=== PATIENT | female | born 1960 | race Caucasian/White ===

== ENCOUNTER → 2021-10-22 | Outpatient (CLI) | payer OTHER, SELFPAY | END | disposition home or self-care (01) | LOC: LABSPEC 13:26 | PROVIDERS: Visit Provider Obstetrics & Gynecology | DX: R30.0 Dysuria (principal) | CPT/HCPCS: 87086; 87088 ==

== ENCOUNTER 2021-11-18 14:13 | Observation (INO) | payer SELFPAY, OTHER ==
--- NOTE | 2021-11-12 14:40 | EKG12_ITS ---
Test Reason : PRE OP Blood Pressure : / mmHG Vent. Rate : 098 BPM Atrial Rate : 098 BPM P-R Int : 156 ms QRS Dur : 068 ms QT Int : 348 ms P-R-T Axes : 070 -12 047 degrees QTc Int : 444 ms Normal sinus rhythm Low voltage QRS Septal infarct , age undetermined Abnormal ECG Confirmed by DEIRDRE KENNEDY, KATHY ([id number]), graphic editor PARISH PAUL ([id number]) on 11/13/2021 8:48:55 AM Referred By: ROSIBEL Confirmed By:KATHY GILMORE MD
[2021-11-12 16:24] LABS: Hemoglobin A1c 7.3 % (3.8-5.6)
[2021-11-12 16:35] LABS: Anion Gap 8 (5-15); BUN 25 mg/dL (7-18); BUN/Creat Ratio 28.3 RATIO (10-20); Calcium,Total 9.7 mg/dL (8.5-10.1); Chloride 99 mmol/L (98-107); Creatinine, Serum 0.88 mg/dL (0.55-1.02); EST Glomerular Filtration Rate 69 mL/min (>60); Est Glom Filt Rate - Afr Amer 83 mL/min (>60); Glucose 184 mg/dL (74-106); Magnesium 2.3 mg/dL (1.6-2.6); Sodium Level 137 mmol/L (136-145); Thyroid Stim Hormone (TSH) 2.49 uIU/mL (0.358-3.74)
--- NOTE | 2021-11-17 21:10 | HP.PCM_ITS ---
History and Physical Date of Admission: 11/18/21 Surgical History and Physical Nadine Cornejo, a 61 year old female 10 0 1 0 10, presents for Vaginal Hysterectomy and AP Repair on November 18, 2021. -- Large Cystocele; Uterine fibroid -- Nadine states she does have some discomfort and urinary urgency. Gellhorn fell out the evening it was inserted. Has a large protrusion that is very red and uncomfortabe. She has dysuria and pain in perineum at int most of the time. Nadine claims it started suddenly and has been present 2 years. It occurs all the time. It is located in the vagina. Nadine characterizes it to be non-radiating. Nadine characterizes the quality pressure. Additional comments are: prior C- section and fibroids about 13 years ago before menopause. MEDICATIONS HISTORY: Current medications prescribed by our practice are: 1. clobetasol 0.05 % topical cream, Apply thinly to affected area three times a day for 2 weeks then daily as needed 2. Detrol LA 2 mg capsule,extended release, One pill by mouth once a day 3. Diflucan 150 mg tablet, 1 pill by mouth every 4 days Patient is also takin. Metformin 1000mg, bid 2. Glipizide 10mg, daily 3. Farxiga 10 mg tablet, One pill by mouth once a day in am 4. levothyroxine 75 mcg tablet, One pill by mouth once a day ALLERGIES: NKDA Infections - Chicken pox Illnesses - Diabetes, Hypothyroidism, Accidents - None Hospitalizations - see surgery Review of Systems: GENERAL - Denies fever, or chills SKIN - Denies skin changes EYES - Denies visual changes EARS - Denies difficulty hearing NOSE - Denies nasal congestion or bleeding MOUTH - Denies sore throat or difficulty swallowing NECK - Denies pain or swelling RESPIRATORY - Denies shortness of breath or wheezing CARDIOVASCULAR - Denies palpitations or chest pain GASTROINTESTINAL - Denies nausea, vomiting, diarrhea, constipation GENITOURINARY - Denies dysuria, frequency of urination, incontinence of urine MUSCULOSKELETAL - Denies joint or muscle pain NEUROLOGICAL - Denies localized numbness or weakness PSYCHIATRIC - Denies depression or anxiety ENDOCRINE - Denies heat or cold intolerance, weight loss or gain HEMATO-IMMUNOLOGIC - Denies excesive bleeding with cuts SOCIAL HISTORY: Alcohol Use - None Smoking - Never Diet - Diabetic Diet Lifestyle - moderate stress lifestyle and Exercise - active Seat Belt Use - most of the time Employer - [employer] Illicit Drug Use - None Sexual Activity - Spouse-Sig Other Name - Donald Spouse-Sig Other Occupation - Dog [employer] Children Name(s) - 10 children Control - postmenopausal FAMILY HISTORY: Mother: Heart Disease. Father: Prostrate and Bone Cancer. MENSTRUAL HISTORY: LMP Known?- PostmenopausalAmount/Duration - 5 to 7 days, Regularity - Regular, LMP - 03/19/09, Age Onset Menarche - 12 PAST PREGNANCIES: Total Pregnancies - 11; Full Term Pregnancies - 10; Premature - 0; Abortions, Induced - 0; Abortions, Spontaneous - 1; Ectopics - 0; Multiple Births - 0; Living Children - 10 SURGICAL HISTORY: 1. 11/06/1997 cholecystectomy ; [facility] 2. 02/06/1999 Hernia Repair ; [facility] 3. 11/27/1983 4. 05/21/2001 5. 03/17/2007 [place] ; [place] [id number] (R) Knee Replacement 2017 Bilateral Vein Stripping PHYSICAL EXAM BP- 110/72 Sitting, Right arm, regular cuff Weight- 184.0 lbs Height- 63.00 inch BMI:32.6 CONSTITUTIONAL - NAD, well nourished, and well developed NEUROLOGICAL - Cranial nerves II-XII grossly intact PSYCHIATRIC - A and O to time, place, person, mood and affect External Genitial Vagina - non-tender without lesions and irritation posterior forchette Urethra/Urethral Meatus - non-tender Bladder - non-tender Vagina - loss of rugae, cystocele 5 cm outside introitus with bearing down; rectocele to introitus and very open perineum Cervix - without cervical motion tenderness and has normal size and features without evident lesions Uterus - nulliparous size 5 cm & wt 70 g Adnexa - clear without masses or tenderness ASSESSMENT/PLAN: 1. Cystocele Midline and Rectocele Very symptomatic and large. Discussed options for treatment including pessary use versus Vag Hyst with AP Repair. Pessary use failed. Start intravaginal estrogen, clobetasol cream for irritation. Wants to proceed with Vag Hyst, AP Repair. Discussed RBAs and all questions answered.
[2021-11-18] VITALS (11 sets, daily range): BP systolic 124–142; BP diastolic 72–91; PULSE 83–111; RESP 11–18; TEMP 36.6–37.2; O2SAT 94–99; BMI 31.9
[2021-11-18 10:44] LABS: Absolute Neutrophil Count 3.3 X10^3/uL (2.0-7.7); Basophil# 0.03 X10^3/uL; Basophil% 0.5 % (0-1); Eosinophil# 0.14 X10^3/uL; Eosinophils% 2.4 % (0-5); Hematocrit 38.5 % (37-47); Hemoglobin 12.8 g/dL (12.0-15.0); Lymphocyte % 32.5 % (19-41); Mean Corp Hgb Conc 33.2 g/dL (32-36); Mean Corpuscular Hgb 28.6 pg (27.0-32.0); Mean Corpuscular Volume 85.9 fL (81-99); Mean Platelet Vol. 9.8 fl (6.2-12.0); Monocyte# 0.51 X10^3/uL; Monocyte% 8.7 % (0-10); NRBC Flagged by Analyzer 0 % (0-5); Neutrophil # 3.26 X10^3/uL (2.7-7.7); Neutrophil % 55.7 % (47-70); Platelet Count 201 K/mm3 (150-450); RBC Distribution Width CV 13.3 % (11.6-14.6); RBC Distribution Width SD 41.5 fl (35.1-43.9); Red Blood Count 4.48 M/mm3 (4.2-5.4); White Blood Count 5.9 K/mm3 (4.4-11.0)
[2021-11-18] MEDS: Lactated Ringers 1,000 ML 40 ML IV ×2 (10:45→13:15)
[2021-11-18] MEDS: Gabapentin 600 MG Tablet PO (10:46)
[2021-11-18] MEDS: Acetaminophen 500 MG Tablet 1000 MG PO (10:46)
[2021-11-18 10:54] LABS: International Normalized Ratio 0.9; Prothrombin Time (Protime)PT. 12.1 SECONDS (11.7-14.9)
[2021-11-18 10:55] LABS: Partial Thromboplast Time 25.7 Seconds (24.1-36.2)
[2021-11-18 10:58] LABS: ALB/GLOB Ratio 1.2 RATIO (0.9-2.4); AST(SGOT) 15 U/L (15-37); Alanine Aminotransfer ALT/SGPT 26 U/L (13-56); Albumin, Serum 3.7 g/dL (3.2-5.0); Alkaline Phosphatase 54 U/L (45-117); Anion Gap 6 (5-15); BUN 26 mg/dL (7-18); BUN/Creat Ratio 32.8 RATIO (10-20); Calcium,Total 9.2 mg/dL (8.5-10.1); Chloride 108 mmol/L (98-107); Creatinine, Serum 0.79 mg/dL (0.55-1.02); EST Glomerular Filtration Rate 78 mL/min (>60); Est Glom Filt Rate - Afr Amer 94 mL/min (>60); Estimated Creatinine Clearance 61.08 ml/min; Globulin 3.1 g/dL (2.2-4.2); Glucose 157 mg/dL (74-106); Protein, Total 6.8 g/dL (6.4-8.2); Sodium Level 140 mmol/L (136-145)
--- NOTE | 2021-11-18 11:32 | OP.PCM_ITS ---
Report of Operation Date of Procedure: 11/18/21 Pre-Operative Diagnosis: Symptomatic Incomplete Uterovaginal Prolapse, Cystocel e, Rectocele Post-Operative Diagnosis: Symptomatic Incomplete Uterovaginal Prolapse, Cystocele, Rectocele Surgery/Procedure Performed:: Vaginal Hysterectomy and Anterior Posterior Repair Description of Surgical Findings:: 10 cm size uterus with long and inflamed cervix that prolapsed 4 cm outside the introitus. Cystocele which prolapsed approximately 5 cm outside the introitus. Moderate rectocele noted after cystocele repair. Surgeon: Luis Enrique Ryder yoghurt maker: Liu Simmons Type of Anesthesia: General (LMA) Anesthesiologist: Mitch Clemente Specimen's removed: Uterus, vaginal mucosa Drains: Londono to straight drain Estimated Blood Loss (mL): 200 cc Fluids Replaced: crystalloid Description of Procedure: Surgeon: Luis Enrique Ryder MD, FACOG Indications: This is a 61-year-old patient who is been having problems with painful and symptomatic prolapse and a large cystocele. Conservative measures including Gelhorn pessary attempt have not been helpful. Given this the patient desires that we proceed the above procedure. She has been counseled regarding the risk and indications of this procedure including the possibility of bleeding, infection, and injury to surrounding structures such as bowel bladder. All questions were answered. Procedure: Patient was taken to the operating room where after induction of general anesthesia she was placed in the dorsal lithotomy position and prepped and draped in the usual sterile fashion. A Londono catheter was placed. Anterior cervix was grasped with a tenaculum and anterior cervix circumscribed with cautery on a setting of 35 W coagulation. Anterior vaginal mucosa was undermined and anterior peritoneum was entered after 2 bites along each side of the cervix. The posterior aspect of the cervix was circumscribed with a knife and posterior peritoneum more easily entered. Progressive bites were taken on either side of the uterine cervix and each pedicle ligated with 0 Vicryl suture. Superior pedicles were ligated ?2 with 0 Vicryl suture and sidewall pedicles were examined and oversewn where necessary with [id number] 0 Vicryl suture to achieve hemostasis. Posterior vaginal cuff was oversewn with running locked 0 Vicryl suture. Hemostasis was noted and peritoneum was closed in a purse string fashion incorporating superior pedicles into the stitch. Vaginal cuff was then closed front to back with interrupted [id number] 0 Vicryl suture. Hemostasis was noted. Attention was turned toward the anterior repair portion of the procedure. Anterior vaginal mucosa was undermined and divided and then imbricated toward the midline with interrupted 0 Vicryl sutures. Vaginal mucosa was trimmed and then closed with interrupted 2-0 chromic suture. Hemostasis was noted. Attention was turned toward the posterior repair portion of the procedure. Remnants of the hymenal ring were grasped with Allises and a V-shaped incision was made in the perineum. Rectovaginal mucosa was then undermined divided and then imbricated toward the midline with interrupted 0 Vicryl suture. Vaginal m ucosa was trimmed and then closed with running locked 2-0 chromic suture. Remnants of the bulbocavernosus muscles were identified and brought toward the midline with a single [id number] 0 Vicryl suture and perineum was closed in the usual fashion with running and subcuticular, and [id number] 2-0 chromic suture. Hemostasis was noted. Londono catheter was again opened and clear yellow urine was again noted. Vagina was packed with iodoform tape. Patient tolerated the procedure well was taken to recovery room in satisfactory condition; sponge instrument and needle counts were all reportedly correct. Estimated blood loss for the case was 200 cc. Ancef 2 g IV was given prior to beginning the operative procedure. There were no apparent complications of the surgery. Specimen to pathology was uterus and vaginal mucosa. Grafts/Implants Used: None Complications None Admit VTE Documentation VTE Present on Admission: Yes VTE Mechan Device Prophylaxis: SCD's VTE Pharm Prophylaxis ordered?: Yes
[2021-11-18] MEDS: Cefazolin 2 GM in 0.9% Normal Saline 100 ML IV (11:41)
--- NOTE | 2021-11-18 12:00 | HYST_PTH ---
PATIENT: DEANA TANG LOC: [facility] U#:[id number] AGE/SX: 61/F ROOM: MI312 RE11/18/[address]: Dr. Luis Enrique Ryder MD : 1960 BED: 1 DIS: 11/19/2021 SPEC #: [id number] RECD: 11/18/21 15:50 STATUS: CORINNE VAUGHAN #: [id number] ADRIEN: 11/18/21 12:[address]: Luis Enrique Ryder DEPT: SURGICAL PATHOLOGY RECD BY: Juani Gonzalez ENTERED: 11/19/21 12:08 SP TYPE: HYSTERECT OTHR DR: Dr. Luis Enrique Agee MD Tissues: Uterus, NOS Procedures: Surgery Specimen Level II Surgery Specimen Level V HEADER OPERATION: Vaginal hysterectomy, anterior and posterior repair PRE-OP DIAGNOSIS: Symptomatic incomplete uterovaginal prolapse, cystocele, rectocele TISSUE SUBMITTED: Uterus, cervix, vaginal mucosa MICROSCOPIC DIAGNOSIS Uterus, hysterectomy: Cervix ? focal ulceration with associated acute and chronic inflammation and early granulation, nabothian cysts. Endometrium ? simple cystic hyperplasia without atypia. Myometrium ? leiomyoma and adenomyosis. Vaginal mucosa, anterior and posterior repair: Hyperkeratosis and minimal chronic inflammation. AM:mo 11/20/2021 MICROSCOPIC DESCRIPTION Slides are reviewed. GROSS DESCRIPTION Received in fixative is one container labeled with the patient's name and designated uterus, cervix and vaginal mucosa. The specimen consists of a hysterectomy specimen consisting of uterus with cervix and detached mucosal tissue. The uterus with cervix weighs 101 gm and measures 13 x 6 x 4 cm. The serosal surface is focally ragged. The ectocervical mucosa is unremarkable. The external os is slit-like in contour. The endocervical canal is elongated and measures up to 5.5 cm in length. The endocervical mucosa is stearns, glistening and unremarkable. The triangular endometrial cavity measures 4 cm in length and up to 3 cm in width. The endometrium is stearns, glistening without any mass lesion and measures 0.1 cm in thickness. Sections of the uterine wall reveal one intramural nodular mass at the fundus measuring 1.5 cm in diameter. Sections of this mass reveals stearns whorled cut surfaces without areas of hemorrhage, necrosis or cystic degeneration. The uninvolved uterine wall measures up to 2.2 cm in thickness. Also present in the container are two detached pieces of stearns mucosal tissue measuring in aggregate 7 x 4.5 x 0.3 cm. No mucosal lesion is identified. Multiple instrumentation [place] are noted. Solution Design Engineer sections are submitted in eight cassettes as follows: 1 - anterior cervix, 2 - posterior cervix, 3 & 4 - anterior uterine wall, 5 & 6 - posterior uterine wall, 7 ? nodular mass, 8 ? mucosal tissue. / CITLALLI:mo 11/19/2021 TC:1 CPT: 48372, 88428
[2021-11-18 13:31] LABS: Bedside Glucose 165 mg/dL (74-106)
[2021-11-18] MEDS: Ondansetron 4 MG/2 ML Vial IV (14:15)
[2021-11-18] MEDS: Insulin Lispro 100 UNIT/ML INSULN.PEN SC (14:45)
[2021-11-18 14:51] LABS: Bedside Glucose 239 mg/dL (74-106)
[2021-11-18] MEDS: oxyCODONE 5 MG Tablet PO (17:56)
[2021-11-18] MEDS: glipiZIDE XL 5 MG Tablet 20 MG PO (17:56)
[2021-11-18] MEDS: Enoxaparin 40 MG/0.4 ML Syringe SC (20:27)
[2021-11-18] MEDS: Cefazolin 1 GM/50 ML BAG IV (20:27)
[2021-11-18] MEDS: Ketorolac 15 MG/ML Vial IV (21:56)
[2021-11-18] MEDS: 0.9% Saline Lock 10 ML Syringe IV (21:56)
[2021-11-19 02:00] VITALS: BP 105/61; PULSE 100; RESP 18; TEMP 37.1; O2SAT 96
[2021-11-19] MEDS: Cefazolin 1 GM/50 ML BAG IV (02:36)
[2021-11-19] MEDS: 0.9% Saline Lock 10 ML Syringe IV (04:13)
[2021-11-19] MEDS: Ketorolac 15 MG/ML Vial IV ×3 (04:13→15:46)
[2021-11-19 05:54] LABS: Hematocrit 32.3 % (37-47); Hemoglobin 10.7 g/dL (12.0-15.0); Mean Corp Hgb Conc 33.1 g/dL (32-36); Mean Corpuscular Hgb 28.6 pg (27.0-32.0); Mean Corpuscular Volume 86.4 fL (81-99); Mean Platelet Vol. 9.3 fl (6.2-12.0); Platelet Count 176 K/mm3 (150-450); RBC Distribution Width CV 13.6 % (11.6-14.6); RBC Distribution Width SD 42.7 fl (35.1-43.9); Red Blood Count 3.74 M/mm3 (4.2-5.4); White Blood Count 9.1 K/mm3 (4.4-11.0)
[2021-11-19] MEDS: oxyCODONE 5 MG Tablet PO ×2 (06:18→12:24)
[2021-11-19] MEDS: Levothyroxine 75 MCG Tablet PO (06:18)
[2021-11-19 06:26] LABS: Creatinine, Serum 0.73 mg/dL (0.55-1.02); EST Glomerular Filtration Rate 85 mL/min (>60); Est Glom Filt Rate - Afr Amer 103 mL/min (>60)
[2021-11-19 06:58] VITALS: O2SAT 96
[2021-11-19 07:52] VITALS: BP 97/58; PULSE 97; RESP 18; TEMP 37; O2SAT 98
[2021-11-19] MEDS: metFORMIN HCl 1,000 MG Tablet 1000 MG PO ×2 (08:00→17:56)
--- NOTE | 2021-11-19 08:54 | PN.OBGYN_ITS ---
Subjective Subjective Patient without complaints. Tolerating diet well. Minimal vaginal bleeding reported. Londono catheter remains in. Vaginal pack removed with minimal vaginal bleeding noted. Objective Data Objective Data Good urine output. Hemoglobin and creatinine okay. Vital Signs: Vital Signs Temp Pulse Resp BP Pulse Ox 98.6 F 97 18 97/58 L 98 11/19/21 07:52 11/19/21 07:52 11/19/21 07:52 11/19/21 07:52 11/19/21 07:52 Oxygen Flow Rate (L/min) 4 Oxygen Delivery Method Room Air Weight: 180 lb 8.937 oz Body Mass Index (BMI) 31.9 Intake & Output: Intake and Output for Last 24 Hours 11/17/21 11/18/21 11/19/21 23:59 23:59 23:59 Intake Total 1752 / 1812 110 / 110 Output Total 450 / 650 550 / 550 Balance 1302 / 1162 -440 / -440 Lab / Micro Data Result Diagrams: 11/19/21 05:15 11/19/21 05:15 Labs: Laboratory Results - last 24 hr 11/18/21 10:23: POC Glucose 165 H 11/18/21 10:30: WBC 5.9, RBC 4.48, Hgb 12.8, Hct 38.5, MCV 85.9, MCH 28.6, MCHC 33.2, RDW Std Deviation 41.5, RDW Coeff of Kurt 13.3, Plt Count 201, MPV 9.8, Immature Gran % (Auto) 0.200, Neut % (Auto) 55.7, Lymph % (Auto) 32.5, [place] % (Auto) 8.7, Eos % (Auto) 2.4, Baso % (Auto) 0.5, Absolute Neuts (auto) 3.3, Absolute Lymphs (auto) 1.90, Nucleated RBC % 0 11/18/21 10:30: PT 12.1, INR 0.9, APTT 25.7 11/18/21 10:30: Sodium 140, Potassium 4.0, Chloride 108 H, Carbon Dioxide 26.0, Anion Gap 6, BUN 26 H, Creatinine 0.79, Estim Creat Clear Calc 61.08, Est GFR (MDRD) Af Amer 94, Est GFR (MDRD) Non-Af 78, BUN/Creatinine Ratio 32.8 H, Glucose 157 H, Calcium 9.2, Total Bilirubin 0.30, AST 15, ALT 26, Alkaline Phosphatase 54, Total Protein 6.8, Albumin 3.7, Globulin 3.1, Albumin/Globulin Ratio 1.2 11/18/21 10:30: Blood Type A POSITIVE, Antibody Screen NEGATIVE 11/18/21 14:42: POC Glucose 239 H 11/19/21 05:15: WBC 9.1, RBC 3.74 L, Hgb 10.7 L, Hct 32.3 L, MCV 86.4, MCH 28.6, MCHC 33.1, RDW Std Deviation 42.7, RDW Coeff of Kurt 13.6, Plt Count 176, MPV 9.3 11/19/21 05:15: Creatinine 0.73, Estim Creat Clear Calc 66.10, Est GFR (MDRD) Af Amer 103, Est GFR (MDRD) Non-Af 85 Assessment & Plan (1) Uterovaginal prolapse, incomplete: PLAN: Doing well postoperative day #1 status post vaginal hysterectomy and anterior posterior repair. Will start voiding trial and anticipate discharge home later today if good progress continues.Routine home-going instructions given.
--- NOTE | 2021-11-19 08:57 | DCINST_ITS ---
Discharge Instructions Diet Discharge Diet: No restrictions Activity Discharge Activity: May Shower and May Take a Tub Bath May resume sexual activity in: 6 weeks (nothing in the vagina.) Lifting Restrictions: 25 pounds for 6 weeks. Additional Activity Instructions:: Nothing in the vagina for 6 weeks please; no lifting more than 20-25 lbs for 6 weeks. Use Ibuprophen 800 mg orally every 8 hours as needed for pain. Can also add Tylenol 1000 mg every 8 hours if needed for pain. If Ibuprophen and Tylenol are not effective then use the Oxycodone but keep in mind it can cause serious constipation issues. Drink lots of water. Call if bleeding more than a pad per hour. Use the colace as constipation is a big issue after this type of surgery. Steps and walking are OK. Activity is encouraged but do not over do it !! Dressing / Incision Call your doctor if you observe: Fever of 101 or Higher, Inability to urinate, Inability to have a bowel movement, Using more than 1 pad per hour and - (Some vaginal bleeding may be noted for up to 4-8 weeks.) Follow Up Care Please Follow Up With: Luis Enrique Ryder MD When: Call [phone] for an appointment to be seen in 2 weeks. Test Results: Test results from this visit will be discussed in further detail at your follow-up appointment, if applicable. Discharge Plan Admission Admit Date/Time: 11/18/21 14:13 Primary Reason for Your Visit: Vaginal Hysterectomy and Anterior Posterior Repair Attending Provider: Luis Enrique Ryder Primary Care Provider: Luis Enrique Agee Discharge Orders/Prescriptions Prescriptions: New oxycodone 5 mg capsule 5 mg PO Q6H PRN (Reason: pain (scale score 7-10)) 7 Days Qty: 7 RF: 0 docusate sodium 100 mg tablet 100 mg PO BID PRN (Reason: constipation) Qty: 60 RF: 1 Continued glipizide 10 mg Tablet 20 mg PO QHS RF: 0 levothyroxine 75 mcg Tablet 75 mcg PO DAILY RF: 0 metformin 1,000 mg Tablet 1,000 mg PO BID RF: 0 estradiol 1 mg/gram (0.1 %) Gel In Packet 1 packet transdermal DAILY RF: 0 Farxiga 10 mg Tablet 10 mg PO DAILY RF: 0 Ozempic 0.25 mg or 0.5 mg(2 mg/1.5 mL) Pen Injector 0.5 mg SUBCUT TU RF: 0 Other Ambulatory Orders: CBC-Complete Blood Cnt No Diff (Routine) Timeframe: [id number] Facility: [facility] - Location: Laboratory Ordered By: Dr. Luis Enrique Ryder Referrals / Follow Up: Luis Enrique Agee MD [Primary Care Provider] -
[2021-11-19] MEDS: Empagliflozin 25 MG Tablet PO (09:31)
[2021-11-19] MEDS: Docusate Sodium 100 MG Capsule PO (09:31)
[2021-11-19] MEDS: Enoxaparin 40 MG/0.4 ML Syringe SC (09:31)
[2021-11-19] MEDS: Magnesium Chloride 64 MG Delay Rel.Tablet 128 MG PO (12:24)
[2021-11-19] MEDS: Acetaminophen 500 MG Tablet 1000 MG PO (15:45)
[2021-11-19] MEDS: glipiZIDE XL 5 MG Tablet 20 MG PO (17:56)
[2021-11-19 18:15] VITALS: BP 144/70; PULSE 80; RESP 18; TEMP 36.8; O2SAT 98
== END 2021-11-19 19:03 | disposition home or self-care (01) ==
LOC: SDC 15:14 → MS3 15:14
PROVIDERS: Anesthesiology; Admitting Provider Obstetrics & Gynecology; PCP Family Medicine; Referring Provider Obstetrics & Gynecology; Visit Provider Obstetrics & Gynecology
PROC: (CPT 58260; principal; 2021-11-18 11:40)
DX: N81.2 Incomplete uterovaginal prolapse (principal); E11.9 Type 2 diabetes mellitus without complications; N85.01 Benign endometrial hyperplasia; D25.9 Leiomyoma of uterus, unspecified; R30.0 Dysuria; Z78.0 Asymptomatic menopausal state; Z79.899 Other long term (current) drug therapy; Z79.84 Long term (current) use of oral hypoglycemic drugs; Z79.890 Hormone replacement therapy; E03.9 Hypothyroidism, unspecified
CPT/HCPCS: 58260; 57260; 00944; 36415; 80048; 80053; 82565; 82962; 83036; 83735; 84443; 85025; 85027; 85610; 85730; 86850; 86900; 86901; 88302; 88307; 93005; 96365; 96366; 96372; 96375; 96376; 99218; 99251; J7120; A4216; G0378; G0463; J2405; J3475

== ENCOUNTER → 2021-11-21 | Outpatient (CLI) | payer OTHER, SELFPAY | END | disposition home or self-care (01) | LOC: WOBLAB 15:35 | PROVIDERS: PCP Family Medicine; Visit Provider Obstetrics & Gynecology | DX: R30.0 Dysuria (principal) | CPT/HCPCS: 87086 ==

== ENCOUNTER → 2022-01-28 | Outpatient (CLI) | payer OTHER, SELFPAY | END | disposition home or self-care (01) | PROVIDERS: PCP Family Medicine; Visit Provider Student in an Organized Health Care Education/Training Program | DX: N76.0 Acute vaginitis (principal); R30.0 Dysuria | CPT/HCPCS: 87086; 87088 ==

== ENCOUNTER → 2024-06-14 | Outpatient (CLI) | payer OTHER, SELFPAY ==
[2024-06-14 12:41] LABS: Absolute Lymphocyte Count 2.08 X10^3/uL (0.83-4.51); Absolute Neutrophil Count 3.2 X10^3/uL (2.0-7.7); Basophil# 0.05 X10^3/uL; Basophil% 0.8 % (0-1); Eosinophil# 0.18 X10^3/uL; Hemoglobin 11.5 g/dL (12.0-15.0); Lymphocyte # 2.08 X10^3/ul (0.83-4.51); Lymphocyte % 34.8 % (19-41); Mean Corp Hgb Conc 32.9 g/dL (32-36); Mean Corpuscular Hgb 28.5 pg (27.0-32.0); Mean Corpuscular Volume 86.6 fL (81-99); Mean Platelet Vol. 10.3 fl (6.2-12.0); Monocyte# 0.41 X10^3/uL; Monocyte% 6.9 % (0-10); NRBC Flagged by Analyzer 0 % (0-5); Neutrophil # 3.24 X10^3/uL (2.7-7.7); Neutrophil % 54.2 % (47-70); Platelet Count 219 K/mm3 (150-450); RBC Distribution Width CV 13.2 % (11.6-14.6); RBC Distribution Width SD 41.5 fl (35.1-43.9); Red Blood Count 4.04 M/mm3 (4.2-5.4)
[2024-06-14 13:12] LABS: ALB/GLOB Ratio 1.3 RATIO (0.9-2.4); AST(SGOT) 12 U/L (15-37); Alanine Aminotransfer ALT/SGPT 31 U/L (13-56); Albumin, Serum 3.9 g/dL (3.2-5.0); Alkaline Phosphatase 73 U/L (45-117); Anion Gap 4 (5-15); BUN 17 mg/dL (7-18); BUN/Creat Ratio 20.9 RATIO (10-20); Calcium,Total 9.4 mg/dL (8.5-10.1); Chloride 105 mmol/L (98-107); Creatinine, Serum 0.81 mg/dL (0.55-1.02); EST Glomerular Filtration Rate 75 mL/min (>60); Est Glom Filt Rate - Afr Amer 91 mL/min (>60); Ferritin 34 ng/mL (8-252); Free T3 2.3 pg/mL (2.18-3.98); Glucose 146 mg/dL (74-106); Iron 77 ug/dL (50-170); Protein, Total 6.9 g/dL (6.4-8.2); Sodium Level 139 mmol/L (136-145); T4 Free Direct 0.95 ng/dL (0.76-1.46)
== END | disposition home or self-care (01) ==
LOC: LABSPEC 12:21
PROVIDERS: PCP Family Medicine; Referring Provider Nurse Practitioner Family; Visit Provider Nurse Practitioner Family
DX: G47.00 Insomnia, unspecified (principal); F41.9 Anxiety disorder, unspecified; R53.83 Other fatigue
CPT/HCPCS: 80053; 82728; 83540; 84439; 84481; 85025